=== PATIENT | female | born 1980 | race Caucasian/White ===

== ENCOUNTER → 2024-10-28 16:26 | Outpatient (BNVA) | payer BC, MEDICAID, SELFPAY | PROVIDERS: PCP Nurse Practitioner Family; Visit Provider Obstetrics & Gynecology | DX: Z12.4 Encounter for screening for malignant neoplasm of cervix (principal) | CPT/HCPCS: 87624 ==

== ENCOUNTER → 2024-11-04 08:33 | Outpatient (BNVA) | payer BC, MEDICAID, SELFPAY | PROVIDERS: PCP Nurse Practitioner Family; Visit Provider Obstetrics & Gynecology | DX: N81.9 Female genital prolapse, unspecified (principal); D25.9 Leiomyoma of uterus, unspecified; N83.202 Unspecified ovarian cyst, left side; N88.8 Other specified noninflammatory disorders of cervix uteri | CPT/HCPCS: 76830 ==

== ENCOUNTER 2024-11-12 06:49 | Outpatient (CLI) | payer BC, MEDICAID, SELFPAY ==
--- NOTE | 2024-11-12 07:00 | MR_ITS ---
WS: [id number] MRI BRAIN WITH HIGH-RESOLUTION IMAGING THROUGH THE INTERNAL AUDITORY CANALS WITHOUT AND WITH CONTRAST HISTORY: TINNITUS COMPARISON: None available. TECHNIQUE: Multiplanar, multisequence imaging is performed through the brain. Additional 3 mm imaging performed in multiple planes through the internal auditory canal. Postcontrast imaging with 20 ml's of MultiHance. No acute intracranial hemorrhage, midline shift, edema or mass effect. Mild bifrontal lobe atrophy. No prior infarcts. No significant small vessel disease. Ventricles and extra-axial spaces are normal. No inferior displacement of cerebellar tonsils. Clivus and pituitary gland are normal. Internal and external auditory canals: Unremarkable. Cranial nerves VII and VIII complexes: Unremarkable. No enhancement or mass. Cerebellopontine angles: Normal. Paranasal sinuses: Normal. Mastoid air cells: Normal. Calvarium and scalp: Normal. Small caliber distal LEFT vertebral artery but it is patent. Normal dural venous sinuses. MR/MR iac's wo/w con* [id number] IMPRESSION: 1. Normal cerebellopontine angles and internal auditory canals. No mass or abn ormal enhancement. 2. No significant mastoid air cell disease. 3. Very mild bifrontal lobe atrophy. 4. No enhancing masses or vascular malformations.
[2024-11-12] MEDS: gadobenate dimeglumine 20 mL vial IV (07:42)
== END 2024-11-12 06:50 | disposition home or self-care (01) ==
PROVIDERS: PCP Nurse Practitioner Family; Visit Provider Specialist
DX: H93.19 Tinnitus, unspecified ear (principal); G31.89 Other specified degenerative diseases of nervous system
CPT/HCPCS: 70553

== ENCOUNTER 2024-12-05 18:47 | Emergency (ER) | payer BC, MEDICAID, SELFPAY ==
[2024-12-05 19:00] VITALS: BP 148/90; PULSE 78; RESP 17; TEMP 36.8; O2SAT 97; BMI 33.4
--- NOTE | 2024-12-05 19:10 | USR_ITS ---
PROCEDURE INFORMATION: Exam: US Pelvis, Transvaginal, Non-Obstetric Exam date and time: 12/05/2024 7:43 PM Age: 44 years old Clinical indication: Pelvic pain; Prior surgery; Surgery date: 6+ months; Surgery type: Patient reports having a history of tubal ligation and d&c TECHNIQUE: Imaging protocol: Real-time transvaginal pelvic (non-obstetric) ultrasound with image documentation. Transvaginal imaging was used for better evaluation of the endometrium, adnexa, and/or cervix. COMPARISON: US transvaginal [id number] 11/04/2024 8:39 AM FINDINGS: Uterus: Uterus is normal-size. Anterior fibroid measuring 18 mm in largest diameter. Endometrial stripe is normal. Right ovary/adnexa: Normal. No mass. Normal ovarian blood flow on color Doppler. Left ovary/adnexa: Not identified. Urinary bladder: Urinary bladder is limited. Intraperitoneal space: No free fluid. US/US transvaginal [id number] IMPRESSION: No acute findings in the uterus and right ovary. Left ovary not identified.
[2024-12-05 19:22] VITALS: BP 136/78; PULSE 74; O2SAT 95
--- NOTE | 2024-12-05 19:28 | ED_ITS ---
HPI - Abdominal Pain General: Chief Complaint: Abdominal Pain Stated Complaint: sent by fish, possible cyst on ovary Time Seen by Provider: 12/05/24 19:07 History of Present Illness: 44-year-old female complaining of lower abdominal/pelvic pain. Pain was worse today. It has been ongoing for 3 to 4 days. She was seen at an outside facility, CT was ordered. It showed a septated cyst on her right ovary with poor delineation. She presents here as a transfer for pelvic ultrasound for better imaging. She has ongoing pain, 5-6 out of 10. Some nausea. No vomiting since earlier today. also relates that she has had a spot on the skin of her labia that was looked at at the outside facility as well. Related Data Home Medications ?Medication ?Instructions ?Recorded ?Confirmed venlafaxine 150 mg 150 mg PO DAILY 10/13/2411/14 capsule,extended release 24 hr (Effexor XR) Previous Rx's ?Medication ?Instructions ?Recorded estradiol 0.01% (0.1 mg/gram) 1 g vaginal DAILY #42.5 grams 09/30/24 vaginal cream estradiol 1 mg tablet 1 mg PO DAILY #30 tabs 12/01 progesterone micronized 200 mg 200 mg PO DAILY #30 cap s 12/01/24 capsule (Prometrium) hydrocodone 5 mg-acetaminophen 325 1 tab PO Q8H PRN pa in #7 tabs 12/05/24 mg tablet ondansetron 4 mg disintegrating 4 mg PO Q6H PRN nausea and 12/05/24 tablet vomiting #14 tabs Allergies Allergy/AdvReac Type Severity Reaction Status Date / Time No Known Allergies Allergy Verified 12/05/24 19:04 [facility] ED PFSH: Medical History Psychiatric care Type 2 diabetes mellitus High cholesterol Hypertension Non-Hodgkin lymphoma Bipolar 1 disorder Anxiety OCD (obsessive compulsive disorder) Surgical History H/O thyroidectomy History of total knee arthroplasty History of tubal ligation History of dilation and curettage Family History Denies family history of Colon cancer Ovarian cancer Diabetes Heart disease Breast cancer Hypertension Uterine cancer Thyroid disease Stroke Social History (Reviewed 11/25/24 @ 09:14 by ZURDO Burrell Smoking and tobacco/nicotine status: former use of tobacco/nicotine Physical Exam Const: COMMON NORMALS: no acute distress GENERAL APPEARANCE: cooperative; not ill appearing and not frail appearing HENMT: COMMON NORMALS: normocephalic, atraumatic and Normal external nose present HEAD & SCALP: normocephalic and atraumatic FACE & SINUS: normal facial exam and face symmetric NOSE: Normal external nose present Eye: COMMON NORMALS: Equal, round and reactive pupils present and EOMs intact bilaterally PUPIL: Yes Equal, round and reactive pupils present Neck/C-Spine: GENERAL: Yes trachea midline Chest: CHEST: Yes Symmetrical chest wall rise Resp: COMMON NORMALS: normal respiratory effort, No retractions, No use of accessory muscles and clear to auscultation bilaterally AUSCULTATION: clear to auscultation bilaterally Cardio: COMMON NORMALS: regular rate and regular rhythm RATE: regular rate RHYTHM: regular rhythm GI: COMMON NORMALS: Normal to inspection, nondistended, normoactive bowel sounds present OTHER: Lower abdominal tenderness. No rebound. Extremity: COMMON NORMALS: no pedal edema Neuro: [place] COMA SCALE: document GCS findings [place] coma scale eye opening: Spontaneous [place] coma scale verbal response: Orientated [place] coma scale motor response: Obey commands [place] coma scale total score: 15 SENSORY EXAM: Yes extremities (intact) Psych: COMMON NORMALS: speech normal SPEECH: Yes normal speech Skin: COMMON NORMALS: no rashes or lesions noted GENERAL SKIN EXAM: no rashes or lesions noted Course Vital Signs: Vital signs: Vital Signs Temperature 98.3 F 12/05/24 19:00 Pulse Rate 74 12/05/24 19:22 Respiratory Rate 20 H 12/05/24 20:08 Blood Pressure 136/78 12/05/24 19:22 Pulse Oximetry 95 12/05/24 20:08 Oxygen Delivery Me thod Room Air 12/05/24 19:00 MDM - Abdominal Pain Medical Decision Making Patient was seen at outside facility. Her vitals are normal. Her white blood cell count is 10. Bicarbonate is 19. Bilirubin is 1.6. Other labs are benign. These were done at the outside facility. CT of the abdomen pelvis showed a septated right ovarian cyst. There was a fibroid in the uterus as well. No other acute findings. She is sent here for pelvic ultrasound which is pending. Ultrasound reveals blood flow to the right ovary. There is no large cyst. Corpus luteum is noted. Pain is improved to some degree. Should be allowed discharge home. Case management is to make the patient a follow-up appointment with gynecology. Lab Data Labs/Radiology: Radiology Impressions Transvaginal US 12/05/24 19:10 IMPRESSION: No acute findings in the uterus and right ovary. Left ovary not identified. All radiology interpretation(s) finalized by discharge Discharge Plan Discharge Patient Disposition: Home Clinical Impression: Abdominal pain, Ovarian cyst Condition: Stable Prescriptions: New hydrocodone-acetaminophen 5-325 mg tablet 1 tab PO Q8H PRN (Reason: pain) Qty: 7 0RF ondansetron 4 mg tablet,disintegrating 4 mg PO Q6H PRN (Reason: nausea and vomiting) Qty: 14 0RF No Action estradiol 0.01 % (0.1 mg/gram) cream 1 g vaginal DAILY Qty: 42.5 3RF Rx Instructions: twice daily for 14 days and then apply twice weekly venlafaxine [Effexor XR] 150 mg capsule,extended release 24hr 150 mg PO DAILY estradiol 1 mg tablet 1 mg PO DAILY Qty: 30 8RF progesterone micronized [Prometrium] 200 mg capsule 200 mg PO DAILY Qty: 30 8RF Discharge Orders: Discharge ED (Routine); Ordered 12/05/24 Ordered By: Noman Lucas Referrals: Saleem Lanza MD [Physician, DIRECTOR OF INFECTION PREVENTION] - 1-3 days Lisa Vasquez FNP [Primary Care Provider] Patient Instructions: Ovarian Cyst (ED), Abdominal Pain (ED), Opioid Safety, Pain Management Print Language: Swedish Coding Level of Care Code ED Clinical Engineering Manager for Mitchell Luevano
[2024-12-05 20:08] VITALS: RESP 20; O2SAT 95
[2024-12-05] MEDS: oxyCODONE-APAP 5-325 mg Tablet 2 TAB PO (20:08)
[2024-12-05] MEDS: ketorolac 30 mg/mL INJ IM (20:09)
[2024-12-05] MEDS: ondansetron 2 mg/ML SDV 2 mL 4 MG IM (22:16)
[2024-12-05 23:09] VITALS: BP 126/75; PULSE 83; O2SAT 97
--- NOTE | 2024-12-06 07:43 | DCPLANNER ---
Dr. Lucas placed case management request for gynecology follow up. Patient is scheduled for 12/22 currently, Dr. Sevilla said that is sufficient timeline for follow up.
== END 2024-12-05 23:00 | disposition home or self-care (01) ==
PROVIDERS: Emergency Provider Emergency Medicine; PCP Nurse Practitioner Family
DX: R10.9 Unspecified abdominal pain (principal); N83.201 Unspecified ovarian cyst, right side; Z87.891 Personal history of nicotine dependence; E11.9 Type 2 diabetes mellitus without complications; I10 Essential (primary) hypertension
CPT/HCPCS: 76830; 96372; 99284; J1885; J2405; J9999

== ENCOUNTER → 2025-05-05 16:56 | Outpatient (BNVA) | payer BC, MEDICAID, SELFPAY | PROVIDERS: PCP Nurse Practitioner Family | DX: F31.9 Bipolar disorder, unspecified (principal) | CPT/HCPCS: 80053; 80061; 80178; 83036; 84443; 85025 ==